=== PATIENT | male | born 1975 | race Caucasian/White ===

== ENCOUNTER 2022-05-12 06:48 | Emergency (ER) | payer OTHER, SELFPAY ==
[2022-05-12 06:55] VITALS: BP 149/100; PULSE 86; RESP 18; TEMP 36.2; O2SAT 96
--- NOTE | 2022-05-12 07:09 | ED.GENADUL_ITS ---
Discharge Plan Disposition Patient Disposition: HOME Condition: Stable Discharge Details Clinical Impression: Otitis externa of left ear ED Provider: You Toscano Discharge Instructions Instructions: Ciprofloxacin/Dexamethasone (Into the ear), Otitis Externa (ED) Additional Instructions: Please take ibuprofen over the counter. Take 600mg by mouth every 6 hours as needed for pain. Please use ear drops -- apply 4 drops to left ear twice a day for 10 days. Avoid swimming over the next 2 weeks. Please contact your primary care physician to arrange follow-up. Return to the ER immediately for any worsening or new concerning symptoms. Medical Decision Making 46-year-old male here with left ear pain that started a week ago and worse over the past 24 hours. Exam is consistent with acute otitis externa. TM intact. No mastoid tenderness. Plan to treat with ciprodex. Initial dose administered. Will also give ibuprofen. HPI General Mode of arrival: ambulatory . Date/Time Provider Initiated Documentation: 05/12/22 06:53 . Limitations to Documentation: no limitations . Information obtained by: patient . HPI Narrative: 46-year-old male presents with chief complaint of left ear pain. Patient notes he has had sensation of fullness and mild discomfort in his left ear over the past week. No past 24 hours he is noted progressively worsening pain in the left ear. Pain severe this morning. He took ibuprofen yesterday which she thought helped. No associated fever. No sinus congestion. Patient does note he has been swimming recently. General Stated Complaint: EarProblem JOVANA: 5 Review of Systems Constitutional Constitutional: Denies fever(s) ENT Ears, Nose, Mouth, and Throat: Reports as per HPI and Denies sore throat PFSH All Active Problems Otitis externa of left ear (Acute) Social History Smoking/Tobacco Use Status: Never Smoking risk assessment performed?: Yes Alcohol Intake: current Alcohol Intake frequency: holidays/special occasions only Alcohol type: beer Substance use type: does not use Do you feel safe at home: Yes Do you feel safe in your relationship?: Yes Exam Const General: cooperative and no acute distress HENMT Head: normocephalic and atraumatic Ears: TM normal on the right, mastoids normal, no periauricular adenopathy, EAC abnormal (lt) erythema, edema, EAC tenderness and other (some cerumen); no otic discharge and external ear abnormal pain with movement of external ear on the left General nose exam: external nose normal Mouth: moist mucous membranes Throat: posterior oropharynx normal Eyes Conjunctivae: normal conjunctivae Sclera: normal sclerae Neck Neck: trachea midline and supple Skin General skin exam: no rashes or lesions noted Course Vital Signs Vital signs: Vital Signs Temperature 36.2 C L 05/12/22 06:55 Pulse 86 05/12/22 06:55 Respiratory Rate 18 05/12/22 06:55 Blood Pressure 149/100 H 05/12/22 06:55 Pulse Oximetry 96 05/12/22 06:55 Temperature 36.2 C L 05/12/22 06:55 Temperature Source Temporal Artery Scan 05/12/22 06:55 Pulse 86 05/12/22 06:55 Respiratory Rate 18 05/12/22 06:55 Respiratory Effort 05/12/22 06:58 Blood Pressure 149/100 H 05/12/22 06:55 Pulse Oximetry 96 05/12/22 06:55 Oxygen Delivery Method Room Air 05/12/22 06:55 Oxygen Flow Rate 0 05/12/22 06:55 Pain Level 5 05/12/22 06:59
[2022-05-12] MEDS: Ibuprofen 600 MG TAB PO (07:15)
[2022-05-12] MEDS: Ciprofloxacin/Dexameth. 7.5 ML BTL AS (07:16)
== END 2022-05-12 07:39 | disposition home or self-care (01) ==
PROVIDERS: Emergency Provider Student in an Organized Health Care Education/Training Program
DX: H60.92 Unspecified otitis externa, left ear (principal)
CPT/HCPCS: 99282